=== PATIENT | female | born 1990 | race Caucasian/White ===

== ENCOUNTER 2016-07-25 16:44 | Observation (INO) | payer BC ==
[2016-07-07 10:52] VITALS: O2SAT 98
[2016-07-25] MEDS ORDERED: FENTANYL CITRATE 50 MCG/ML SOL IV PRN (17:15)
[2016-07-25] MEDS ORDERED: OXYTOCIN 10000 MU/ML SOL IM PRN (17:15)
[2016-07-25] MEDS ORDERED: SODIUM CHLORIDE 0.9% FLUSH 10 ML SOL IV SCH (17:15)
[2016-07-25] MEDS ORDERED: LACTATED RINGERS 1,000 ML IV PRN (17:15)
[2016-07-25] MEDS ORDERED: MEPIVACAINE HCL 1% MPF 30 ML SOL INFIL PRN (17:15)
[2016-07-25] MEDS ORDERED: SODIUM CHLORIDE 0.9% FLUSH 10 ML SOL IV PRN (17:15)
[2016-07-25] MEDS ORDERED: METHYLERGONOVINE MALEATE 0.2 MG/ML SOL IM PRN (17:15)
[2016-07-25] MEDS ORDERED: CARBOPROST 250 MCG/ML SOL IM PRN (17:15)
[2016-07-25 17:35] VITALS: RESP 20
[2016-07-25 18:01] VITALS: BP 126/86; PULSE 72
[2016-07-25 18:12] VITALS: TEMP 97.6
== END 2016-07-25 18:15 | disposition home or self-care (01) ==
LOC: OB 16:44
PROVIDERS: ADMIT Family Medicine; ATTEND Family Medicine
DX: Z34.90 Encounter for supervision of normal pregnancy, unspecified, unspecified trimester (principal)
CPT/HCPCS: 59025; 84112

== ENCOUNTER 2016-08-04 20:01 | Inpatient (IN) | payer BC ==
[2016-08-04] MEDS ORDERED: CARBOPROST 250 MCG/ML SOL IM PRN (21:44)
[2016-08-04] MEDS ORDERED: METHYLERGONOVINE MALEATE 0.2 MG/ML SOL IM PRN (21:44)
[2016-08-04] MEDS ORDERED: SODIUM CHLORIDE 0.9% FLUSH 10 ML SOL IV PRN (21:44)
[2016-08-04] MEDS ORDERED: OXYTOCIN 10000 MU/ML SOL IM PRN (21:44)
[2016-08-04] MEDS ORDERED: MEPIVACAINE HCL 1% MPF 30 ML SOL INFIL PRN (21:44)
[2016-08-04] MEDS ORDERED: FENTANYL CITRATE 50 MCG/ML SOL IV PRN (21:44)
[2016-08-04] MEDS ORDERED: LACTATED RINGERS 1,000 ML IV SCH (23:45)
[2016-08-04] MEDS ORDERED: EPHEDRINE SULFATE 50 MG/ML SOL IV PRN (23:58)
[2016-08-04] MEDS ORDERED: NALBUPHINE HCL 20 MG/ML SOL IV PRN (23:58)
[2016-08-04] MEDS ORDERED: DIPHENHYDRAMINE 50 MG/ML SOL IV PRN (23:58)
[2016-08-04] MEDS ORDERED: NALOXONE HYDROCHLORIDE 0.4 MG/ML SOL IV PRN (23:58)
[2016-08-05] MEDS: SODIUM CHLORIDE 0.9% FLUSH 10 ML SOL IV SCH ×4 (00:26→21:35)
[2016-08-05] MEDS: LACTATED RINGERS 1,000 ML IV PRN ×2 (00:26→00:36)
[2016-08-05 01:01] LABS: BASOPHILS % (AUTO) 1 % (0-3); EOSINOPHILS % (AUTO) 1 % (0-9); HEMATOCRIT 30 % (35-47); MEAN CORPUSCULAR VOLUME 88 fL (81-99); MONOCYTES % (AUTO) 11.1 % (0-12); NEUTROPHILS % (AUTO) 69.9 % (37-80)
[2016-08-05 01:02] LABS: MEAN CORPUSCULAR HGB CONC 35.1 gm/dl (32.0-36.0)
[2016-08-05] MEDS ORDERED: FENTANYL CITRATE 50 MCG/ML SOL ONE (01:09)
[2016-08-05] MEDS ORDERED: ROPIVACAINE HYDROCHLORIDE 5 MG/ML SOL ONE (01:09)
[2016-08-05] MEDS ORDERED: METHYLERGONOVINE MALEATE 0.2 MG TAB PO PRN (09:30)
[2016-08-05] MEDS ORDERED: APAP/HYDROCODONE 325/5 TAB PO PRN (09:30)
[2016-08-05] MEDS ORDERED: BISACODYL 10 MG SUP PR PRN (09:30)
[2016-08-05] MEDS ORDERED: TEMAZEPAM 15MG 15 MG CAP PO PRN (09:30)
[2016-08-05] MEDS ORDERED: FLEET ENEMA PR PRN (09:30)
[2016-08-05] MEDS ORDERED: WITCH HAZEL 1 EA PAD TOP PRN (09:30)
[2016-08-05] MEDS ORDERED: BENZOCAINE/MENTHOL 1 SPR TOP PRN (09:30)
[2016-08-05] MEDS: LACTATED RINGERS 1,000 ML IV SCH (10:44)
[2016-08-05] MEDS: IBUPROFEN 600 MG TAB PO PRN (12:59)
[2016-08-05] MEDS: DOCUSATE SODIUM 100 MG SGL PO SCH (21:34)
[2016-08-06] MEDS: SODIUM CHLORIDE 0.9% FLUSH 10 ML SOL IV SCH ×3 (06:18→20:58)
[2016-08-06] MEDS: LACTATED RINGERS 1,000 ML IV SCH ×2 (06:59→07:00)
[2016-08-06] MEDS: IBUPROFEN 600 MG TAB PO PRN (07:12)
[2016-08-06] MEDS: DOCUSATE SODIUM 100 MG SGL PO SCH ×2 (09:34→20:57)
[2016-08-07] MEDS: IBUPROFEN 600 MG TAB PO PRN (00:13)
[2016-08-07] MEDS: DOCUSATE SODIUM 100 MG SGL PO SCH (09:04)
[2016-08-07 09:09] VITALS: BP 116/81; PULSE 100; RESP 12; TEMP 97.8; O2SAT 97
== END 2016-08-07 15:25 | disposition home or self-care (01) | DRG 560 ==
LOC: OB 20:48 → OBSVTOIN 20:48 → OB 08-06 18:50
PROVIDERS: ADMIT Family Medicine; ATTEND Family Medicine
PROC: 10E0XZZ Delivery of Products of Conception, External Approach (ICD-10-PCS; principal; 2016-08-05)
PROC: 0KQM0ZZ Repair Perineum Muscle, Open Approach (ICD-10-PCS; 2016-08-05)
DX: O70.1 Second degree perineal laceration during delivery (principal); Z37.0 Single live birth; Z3A.40 40 weeks gestation of pregnancy
CPT/HCPCS: 36415; 84112; 85018; 85025; 94762; J0670; J2590; J2795; J3010